=== PATIENT | male | born 1980 | race Two or more races ===

== ENCOUNTER 2022-12-13 11:10 | Inpatient (IN) | payer MEDICAID ==
[~2022-12-13] VITALS: Ht 185.4 cm; Wt 102.5 kg
[2022-12-13] VITALS (33 sets, daily range): BP systolic 118–174; BP diastolic 82–127; TEMP 97.8–98; O2SAT 96–100
[2022-12-13] MEDS ORDERED: MORPHINE SULFATE INJ 4 MG/ML DISP.SYRIN ONE (11:54)
[2022-12-13] MEDS ORDERED: ONDANSETRON HCL/PF 4 MG/2 ML VIAL ONE (11:54)
[2022-12-13] MEDS ORDERED: KETOROLAC TROMETHAMINE INJ 30 MG/ML VIAL ONE (11:55)
[2022-12-13] MEDS ORDERED: MORPHINE SULFATE INJ 2 MG/ML DISP.SYRIN IV ONE (12:00)
[2022-12-13] MEDS ORDERED: KETOROLAC TROMETHAMINE INJ 30 MG/ML VIAL IV ONE (12:00)
[2022-12-13] MEDS ORDERED: IV NS 0.9% 500 ML BAG IV ONE (12:00)
[2022-12-13] MEDS ORDERED: ONDANSETRON HCL/PF 4 MG/2 ML VIAL IVP ONE (12:00)
[2022-12-13 12:11] LABS: BASOPHILS # (AUTO) 0.1 K/uL (0.0-0.2); BASOPHILS % (AUTO) 0.6 % (0.0-2.0); EOSINOPHILS # (AUTO) 0.2 K/uL (0.0-0.7); EOSINOPHILS % (AUTO) 2.3 % (0.0-6.0); HEMATOCRIT 41 % (39-51); HEMOGLOBIN 13.6 g/dL (13.5-17.5); LYMPHOCYTES # (AUTO) 1.5 K/uL (0.8-4.8); LYMPHOCYTES % (AUTO) 18.4 % (20.0-44.0); MEAN CORPUSCULAR HEMOGLOBIN 29 PG (26.0-33.0); MEAN CORPUSCULAR HGB CONC 34 g/dl (31.0-36.0); MEAN CORPUSCULAR VOLUME 86 fL (80-96); MONOCYTES # (AUTO) 0.9 K/uL (0.1-1.30); MONOCYTES % (AUTO) 11.1 % (2.0-12.0); NEUTROPHILS # (AUTO) 5.4 K/uL (1.8-8.9); NEUTROPHILS % (AUTO) 67.6 % (43.0-81.0); PLATELET COUNT (AUTO) 374 K/uL (150-450); RED BLOOD CELL COUNT(AUTO) 4.75 MIL/uL (4.5-6.0); RED CELL DISTRIBUTION WIDTH 14.7 % (11.5-15.0)
[2022-12-13 12:28] LABS: BILIRUBIN,DIRECT 0.2 mg/dL (0.0-0.2); BILIRUBIN,TOTAL 0.4 mg/dL (0.2-1.0); CALCIUM, SERUM 8.8 mg/dL (8.5-10.1); CREATININE 1.8 mg/dL (0.6-1.3); POTASSIUM 3.5 mmol/L (3.5-5.1); TOTAL PROTEIN, SERUM 7.1 g/dL (6.4-8.2)
[2022-12-13] MEDS ORDERED: CT SWABBABLE VALVE TRANS SET 1 EA INFUS.SET MC ONE (14:01)
[2022-12-13] MEDS ORDERED: IOHEXOL-300 100 ML VIAL IV ONE (14:01)
[2022-12-13] MEDS ORDERED: LABETALOL HCL IV 100MG VIAL ONE (14:53)
[2022-12-13] MEDS ORDERED: LABETALOL 20 MG/4 ML VIAL IV ONE (15:00)
[2022-12-13] MEDS ORDERED: IV NS 0.9% 250 ML IV ONE (15:55)
[2022-12-13] MEDS ORDERED: IOHEXOL-350 100 ML VIAL IV ONE (15:55)
[2022-12-13] MEDS ORDERED: ESMOLOL IVPB PREMIX 2,500 MG in PREMIX 1 EA IV PRN (17:00)
[2022-12-13] MEDS: PANTOPRAZOLE 40 MG TABLET.DR PO SCH (17:25)
[2022-12-13] MEDS: ESMOLOL IVPB PREMIX 2,500 MG in PREMIX 1 EA IV PRN ×2 (17:26→20:56)
[2022-12-13] MEDS ORDERED: Z GUARD REMEDY 4 OZ OINT TP PRN (17:30)
[2022-12-13] MEDS ORDERED: MAGNESIUM HYDROXIDE 30 ML UDC PO PRN (17:30)
[2022-12-13] MEDS ORDERED: ACETAMINOPHEN 325 MG TABLET PO PRN (17:30)
[2022-12-13] MEDS ORDERED: ZOLPIDEM TARTRATE 5 MG TABLET PO PRN (17:30)
[2022-12-13] MEDS ORDERED: ONDANSETRON HCL/PF 4 MG/2 ML VIAL IVP PRN (17:30)
[2022-12-13] MEDS ORDERED: MAG HYDROX/AL HYDROX/SIMETH 30 ML UDC PO PRN (17:30)
[2022-12-13] MEDS: CLOPIDOGREL BISULFATE 75 MG TABLET PO SCH (17:51)
[2022-12-13] MEDS: ASPIRIN 81 MG TAB.CHEW PO SCH (17:51)
[2022-12-13] MEDS: hydrALAZINE HCL IV 20 MG VIAL IV PRN (17:58)
[2022-12-13] MEDS ORDERED: CLOPIDOGREL BISULFATE 75 MG TABLET PO SCH (19:00)
[2022-12-13] MEDS ORDERED: ASPIRIN 81 MG TAB.CHEW PO SCH (19:00)
[2022-12-14] VITALS (57 sets, daily range): BP systolic 111–157; BP diastolic 65–118; TEMP 98–99.1; O2SAT 93–100
[2022-12-14] MEDS: hydrALAZINE HCL IV 20 MG VIAL IV PRN ×2 (01:53→17:27)
[2022-12-14] MEDS: ESMOLOL IVPB PREMIX 2,500 MG in PREMIX 1 EA IV PRN ×9 (02:18→22:51)
[2022-12-14 03:44] LABS: EOSINOPHILS # (AUTO) 0.5 K/uL (0.0-0.7); EOSINOPHILS % (AUTO) 8.3 % (0.0-6.0); HEMATOCRIT 39 % (39-51); HEMOGLOBIN 13.1 g/dL (13.5-17.5); LYMPHOCYTES # (AUTO) 1.2 K/uL (0.8-4.8); LYMPHOCYTES % (AUTO) 20.5 % (20.0-44.0); MEAN CORPUSCULAR HEMOGLOBIN 29 PG (26.0-33.0); MEAN CORPUSCULAR HGB CONC 33 g/dl (31.0-36.0); MEAN CORPUSCULAR VOLUME 86 fL (80-96); MONOCYTES # (AUTO) 0.1 K/uL (0.1-1.30); MONOCYTES % (AUTO) 1.7 % (2.0-12.0); NEUTROPHILS % (AUTO) 69.5 % (43.0-81.0); PLATELET COUNT (AUTO) 375 K/uL (150-450); RED BLOOD CELL COUNT(AUTO) 4.53 MIL/uL (4.5-6.0); RED CELL DISTRIBUTION WIDTH 15.3 % (11.5-15.0); WHITE BLOOD COUNT (AUTO) 5.7 K/uL (4.3-11.0)
[2022-12-14 04:03] LABS: CALCIUM, SERUM 8.4 mg/dL (8.5-10.1); CREATININE 1.7 mg/dL (0.6-1.3); MAGNESIUM 1.9 mg/dL (1.8-2.4); PHOSPHORUS 4.2 mg/dL (2.5-4.9); POTASSIUM 3.6 mmol/L (3.5-5.1)
[2022-12-14 04:12] LABS: THYROID STIMULATING HORMONE 1.661 uIU/mL (0.358-3.74)
[2022-12-14] MEDS: CLOPIDOGREL BISULFATE 75 MG TABLET PO SCH (08:27)
[2022-12-14] MEDS: ASPIRIN 81 MG TAB.CHEW PO SCH (08:28)
[2022-12-14] MEDS: PANTOPRAZOLE 40 MG TABLET.DR PO SCH (08:28)
[2022-12-14 08:37] LABS: BASOPHILS % (AUTO) 0.6 % (0.0-2.0); EOSINOPHILS # (AUTO) 0.1 K/uL (0.0-0.7); HEMATOCRIT 40 % (39-51); LYMPHOCYTES # (AUTO) 1.2 K/uL (0.8-4.8); LYMPHOCYTES % (AUTO) 20.3 % (20.0-44.0); MEAN CORPUSCULAR HEMOGLOBIN 28 PG (26.0-33.0); MEAN CORPUSCULAR HGB CONC 33 g/dl (31.0-36.0); MEAN CORPUSCULAR VOLUME 87 fL (80-96); MONOCYTES # (AUTO) 0.5 K/uL (0.1-1.30); MONOCYTES % (AUTO) 8.7 % (2.0-12.0); NEUTROPHILS # (AUTO) 4.2 K/uL (1.8-8.9); NEUTROPHILS % (AUTO) 68.4 % (43.0-81.0); PLATELET COUNT (AUTO) 374 K/uL (150-450); RED BLOOD CELL COUNT(AUTO) 4.62 MIL/uL (4.5-6.0); RED CELL DISTRIBUTION WIDTH 15.1 % (11.5-15.0); WHITE BLOOD COUNT (AUTO) 6.1 K/uL (4.3-11.0)
[2022-12-14] MEDS: ATORVASTATIN 40 MG TABLET PO SCH (08:46)
[2022-12-14 08:49] LABS: ALBUMIN 2.6 g/dL (3.4-5.0); BILIRUBIN,TOTAL 0.4 mg/dL (0.2-1.0); CALCIUM, SERUM 8.7 mg/dL (8.5-10.1); CREATININE 1.7 mg/dL (0.6-1.3); MAGNESIUM 1.6 mg/dL (1.8-2.4); PHOSPHORUS 3.5 mg/dL (2.5-4.9); POTASSIUM 3.7 mmol/L (3.5-5.1); TOTAL PROTEIN, SERUM 6.4 g/dL (6.4-8.2)
[2022-12-14] MEDS ORDERED: CARVEDILOL 12.5 MG TABLET PO SCH (09:00)
[2022-12-14] MEDS ORDERED: CARVEDILOL 12.5 MG TABLET PO ONE (13:00)
[2022-12-14 16:47] LABS: FERRITIN 127 ng/mL (8-388)
[2022-12-14] MEDS: BLOOD SUGAR DIAGNOSTIC 1 EACH STRIP IN SCH ×2 (16:59→22:01)
[2022-12-14] MEDS ORDERED: HEPARIN INFUSION/D5W 500 ML IV PRN (17:00)
[2022-12-14 17:17] LABS: CREATININE, URINE 173.2 MG/DL (30.0-125.0); URINE TOTAL PROTEIN 77.9 mg/dL (0-11.9)
[2022-12-14 17:20] LABS: IRON, SERUM 128 ug/dl (50-175); TOTAL IRON BINDING CAPACITY 279 ug/dl (250-450)
[2022-12-14 17:27] LABS: APPEARANCE,URINE CLEAR (CLEAR); BILIRUBIN,URINE NEGATIVE (NEGATIVE); BLOOD, URINE NEGATIVE Ery/uL (NEGATIVE); COLOR,URINE YELLOW (YELLOW); KETONES,URINE NEGATIVE (NEGATIVE); LEUKOCYTE ESTERASE ,URINE NEGATIVE (NEGATIVE); NITRITE, URINE NEGATIVE (NEGATIVE); PROTEIN,URINE 1+ mg/dl (NEGATIVE); UGLUCOSE NEGATIVE (NEGATIVE)
[2022-12-14 17:32] LABS: INR 1.09 (0.91-1.10); PARTIAL THROMBOPLASTIN TIME 30.6 SEC (24.3-34.3); PROTHROMBIN TIME 11.4 SECS (9.2-11.1)
[2022-12-14 18:55] LABS: ADD URINE CULTURE NO; BACTERIA,URINE None seen /HPF (None Seen); MUCUS,URINE Moderate /LPF (None Seen); RBC,URINE 0-2 /HPF (0-2); WBC,URINE 0-2 /HPF (0-3)
[2022-12-14 19:02] LABS: EOSINOPHIL,URINE None Seen
[2022-12-14] MEDS: CARVEDILOL 12.5 MG TABLET PO SCH (21:02)
[2022-12-15] VITALS (95 sets, daily range): BP systolic 107–173; BP diastolic 72–115; TEMP 98–98.5; O2SAT 91–100
[2022-12-15] MEDS: ESMOLOL IVPB PREMIX 2,500 MG in PREMIX 1 EA IV PRN ×8 (02:09→20:38)
[2022-12-15 05:33] LABS: BASOPHILS % (AUTO) 0.5 % (0.0-2.0); EOSINOPHILS # (AUTO) 0.1 K/uL (0.0-0.7); EOSINOPHILS % (AUTO) 1.9 % (0.0-6.0); HEMATOCRIT 38 % (39-51); HEMOGLOBIN 12.8 g/dL (13.5-17.5); LYMPHOCYTES # (AUTO) 1.2 K/uL (0.8-4.8); LYMPHOCYTES % (AUTO) 18.4 % (20.0-44.0); MEAN CORPUSCULAR HEMOGLOBIN 29 PG (26.0-33.0); MEAN CORPUSCULAR HGB CONC 34 g/dl (31.0-36.0); MEAN CORPUSCULAR VOLUME 86 fL (80-96); MONOCYTES # (AUTO) 0.6 K/uL (0.1-1.30); MONOCYTES % (AUTO) 9.7 % (2.0-12.0); NEUTROPHILS # (AUTO) 4.6 K/uL (1.8-8.9); NEUTROPHILS % (AUTO) 69.5 % (43.0-81.0); PLATELET COUNT (AUTO) 330 K/uL (150-450); RED BLOOD CELL COUNT(AUTO) 4.41 MIL/uL (4.5-6.0); RED CELL DISTRIBUTION WIDTH 14.9 % (11.5-15.0); WHITE BLOOD COUNT (AUTO) 6.7 K/uL (4.3-11.0)
[2022-12-15 05:44] LABS: CALCIUM, SERUM 8.6 mg/dL (8.5-10.1); CREATININE 1.5 mg/dL (0.6-1.3); MAGNESIUM 1.9 mg/dL (1.8-2.4); PHOSPHORUS 3.1 mg/dL (2.5-4.9); POTASSIUM 3.7 mmol/L (3.5-5.1)
[2022-12-15] MEDS: BLOOD SUGAR DIAGNOSTIC 1 EACH STRIP IN SCH ×2 (07:13→14:56)
[2022-12-15 08:07] LABS: IMMUNOGLOBULIN A, SERUM 220 mg/dL (90-386); IMMUNOGLOBULIN G, SERUM 985 mg/dL (603-1613)
[2022-12-15] MEDS: CLOPIDOGREL BISULFATE 75 MG TABLET PO SCH (08:45)
[2022-12-15] MEDS: ASPIRIN 81 MG TAB.CHEW PO SCH (08:45)
[2022-12-15] MEDS: CARVEDILOL 12.5 MG TABLET PO SCH ×2 (08:46→20:38)
[2022-12-15] MEDS: hydrALAZINE HCL 50 MG TABLET PO SCH ×3 (08:48→17:11)
[2022-12-15] MEDS: NITROGLYCERIN 30 GM TUBE TP SCH ×2 (08:48→21:08)
[2022-12-15] MEDS: ATORVASTATIN 40 MG TABLET PO SCH (09:11)
[2022-12-15] MEDS: PANTOPRAZOLE 40 MG TABLET.DR PO SCH (09:11)
[2022-12-15 11:07] LABS: *SPE A/G RATIO 0.8 (0.7-1.7); *SPE ALBUMIN 2.6 g/dL (2.9-4.4); *SPE ALPHA-1-GLOBULIN 0.3 g/dL (0.0-0.4); *SPE ALPHA-2-GLOBULIN 0.7 g/dL (0.4-1.0); *SPE BETA GLOBULIN 1.1 g/dL (0.7-1.3); *SPE GLOBULIN, TOTAL 3.1 g/dL (2.2-3.9); *SPE M-SPIKE Not Observed g/dL (Not Observed); *SPE PROTEIN TOTAL 5.7 g/dL (6.0-8.5)
[2022-12-15 14:07] LABS: FREE LAMBDA LT CHAIN SERUM 29.4 mg/L (5.7-26.3); KAPPA/LAMBDA RATIO SERUM 1.39 (0.26-1.65)
[2022-12-16] VITALS (96 sets, daily range): BP systolic 106–166; BP diastolic 60–111; TEMP 97.3–98.4; O2SAT 90–100
[2022-12-16] MEDS: ESMOLOL IVPB PREMIX 2,500 MG in PREMIX 1 EA IV PRN ×4 (00:23→07:58)
[2022-12-16] MEDS: hydrALAZINE HCL IV 20 MG VIAL IV PRN ×2 (00:26→20:33)
[2022-12-16 01:06] LABS: FOLIC ACID 12.1 ng/mL (>3.0)
[2022-12-16 04:06] LABS: IMMUNOGLOBULIN M, SERUM 67 mg/dL (20-172)
[2022-12-16 04:50] LABS: BASOPHILS % (AUTO) 0.4 % (0.0-2.0); EOSINOPHILS # (AUTO) 0.1 K/uL (0.0-0.7); EOSINOPHILS % (AUTO) 1.4 % (0.0-6.0); HEMATOCRIT 38 % (39-51); HEMOGLOBIN 12.9 g/dL (13.5-17.5); LYMPHOCYTES # (AUTO) 1.2 K/uL (0.8-4.8); LYMPHOCYTES % (AUTO) 16.1 % (20.0-44.0); MEAN CORPUSCULAR HEMOGLOBIN 29 PG (26.0-33.0); MEAN CORPUSCULAR HGB CONC 34 g/dl (31.0-36.0); MEAN CORPUSCULAR VOLUME 85 fL (80-96); MONOCYTES # (AUTO) 0.8 K/uL (0.1-1.30); NEUTROPHILS # (AUTO) 5.6 K/uL (1.8-8.9); NEUTROPHILS % (AUTO) 72.1 % (43.0-81.0); PLATELET COUNT (AUTO) 368 K/uL (150-450); RED BLOOD CELL COUNT(AUTO) 4.49 MIL/uL (4.5-6.0); RED CELL DISTRIBUTION WIDTH 14.8 % (11.5-15.0); WHITE BLOOD COUNT (AUTO) 7.7 K/uL (4.3-11.0)
[2022-12-16 05:31] LABS: ALBUMIN 2.8 g/dL (3.4-5.0); BILIRUBIN,TOTAL 0.6 mg/dL (0.2-1.0); CALCIUM, SERUM 8.8 mg/dL (8.5-10.1); CREATININE 1.5 mg/dL (0.6-1.3); MAGNESIUM 1.8 mg/dL (1.8-2.4); PHOSPHORUS 2.9 mg/dL (2.5-4.9); TOTAL PROTEIN, SERUM 6.3 g/dL (6.4-8.2)
[2022-12-16 06:06] LABS: PTH, INTACT 59 pg/mL (15-65)
[2022-12-16] MEDS: ATORVASTATIN 40 MG TABLET PO SCH (08:16)
[2022-12-16] MEDS: CARVEDILOL 12.5 MG TABLET PO SCH ×2 (08:16→20:34)
[2022-12-16] MEDS: NIFEdipine XL (30MG) 30 MG TAB PO SCH (08:17)
[2022-12-16] MEDS: ASPIRIN 81 MG TAB.CHEW PO SCH (08:29)
[2022-12-16] MEDS: hydrALAZINE HCL 50 MG TABLET PO SCH ×3 (08:29→16:16)
[2022-12-16] MEDS: PANTOPRAZOLE 40 MG TABLET.DR PO SCH (08:29)
[2022-12-16] MEDS: ISOSORBIDE DINITRATE (20MG) 20 MG TABLET PO SCH ×2 (08:30→16:16)
[2022-12-16] MEDS: CLOPIDOGREL BISULFATE 75 MG TABLET PO SCH (08:30)
[2022-12-16] MEDS: ENOXAPARIN SODIUM 40 MG/0.4 ML DISP.SYRIN SQ SCH (08:31)
[2022-12-17] VITALS (54 sets, daily range): BP systolic 105–164; BP diastolic 57–95; TEMP 98.2–98.9; O2SAT 95–100
[2022-12-17] MEDS: hydrALAZINE HCL IV 20 MG VIAL IV PRN (03:48)
[2022-12-17 05:11] LABS: BASOPHILS # (AUTO) 0.1 K/uL (0.0-0.2); BASOPHILS % (AUTO) 1.1 % (0.0-2.0); EOSINOPHILS # (AUTO) 0.2 K/uL (0.0-0.7); EOSINOPHILS % (AUTO) 2.3 % (0.0-6.0); HEMATOCRIT 39 % (39-51); HEMOGLOBIN 12.7 g/dL (13.5-17.5); LYMPHOCYTES # (AUTO) 1.5 K/uL (0.8-4.8); LYMPHOCYTES % (AUTO) 17.9 % (20.0-44.0); MEAN CORPUSCULAR HEMOGLOBIN 28 PG (26.0-33.0); MEAN CORPUSCULAR HGB CONC 33 g/dl (31.0-36.0); MEAN CORPUSCULAR VOLUME 86 fL (80-96); MONOCYTES % (AUTO) 11.9 % (2.0-12.0); NEUTROPHILS # (AUTO) 5.7 K/uL (1.8-8.9); NEUTROPHILS % (AUTO) 66.8 % (43.0-81.0); PLATELET COUNT (AUTO) 385 K/uL (150-450); RED BLOOD CELL COUNT(AUTO) 4.54 MIL/uL (4.5-6.0); RED CELL DISTRIBUTION WIDTH 14.7 % (11.5-15.0); WHITE BLOOD COUNT (AUTO) 8.5 K/uL (4.3-11.0)
[2022-12-17 05:27] LABS: ALBUMIN 2.6 g/dL (3.4-5.0); BILIRUBIN,TOTAL 0.4 mg/dL (0.2-1.0); MAGNESIUM 1.7 mg/dL (1.8-2.4); PHOSPHORUS 3.6 mg/dL (2.5-4.9)
[2022-12-17 05:35] LABS: CALCIUM, SERUM 8.3 mg/dL (8.5-10.1); CREATININE 1.6 mg/dL (0.6-1.3); POTASSIUM 3.5 mmol/L (3.5-5.1)
[2022-12-17 06:07] LABS: *SPE A/G RATIO 0.7 (0.7-1.7); *SPE ALBUMIN 2.3 g/dL (2.9-4.4); *SPE ALPHA-1-GLOBULIN 0.3 g/dL (0.0-0.4); *SPE ALPHA-2-GLOBULIN 0.4 g/dL (0.4-1.0); *SPE BETA GLOBULIN 1.2 g/dL (0.7-1.3); *SPE GLOBULIN, TOTAL 3.3 g/dL (2.2-3.9); *SPE M-SPIKE Not Observed g/dL (Not Observed); *SPE PROTEIN TOTAL 5.6 g/dL (6.0-8.5); *SPEGAMMA GLOBULIN 1.5 g/dL (0.4-1.8)
[2022-12-17] MEDS: ATORVASTATIN 40 MG TABLET PO SCH (08:06)
[2022-12-17] MEDS: NIFEdipine XL (30MG) 30 MG TAB PO SCH (08:06)
[2022-12-17] MEDS: PANTOPRAZOLE 40 MG TABLET.DR PO SCH (08:06)
[2022-12-17] MEDS: CARVEDILOL 12.5 MG TABLET PO SCH (08:06)
[2022-12-17] MEDS: ASPIRIN 81 MG TAB.CHEW PO SCH (08:07)
[2022-12-17] MEDS: hydrALAZINE HCL 50 MG TABLET PO SCH ×4 (08:07→16:23)
[2022-12-17] MEDS: CLOPIDOGREL BISULFATE 75 MG TABLET PO SCH (08:07)
[2022-12-17] MEDS: ISOSORBIDE DINITRATE (20MG) 20 MG TABLET PO SCH ×3 (08:07→16:23)
[2022-12-17] MEDS: ENOXAPARIN SODIUM 40 MG/0.4 ML DISP.SYRIN SQ SCH (08:08)
[2022-12-17] MEDS ORDERED: LOSARTAN POTASSIUM 50 MG TABLET PO SCH (09:00)
[2022-12-17] MEDS ORDERED: VALSARTAN 80 MG TABLET PO SCH (09:00)
[2022-12-17] MEDS ORDERED: MAGNESIUM OXIDE 400 MG TABLET PO ONE (10:00)
== END 2022-12-17 17:35 | disposition left against medical advice (07) | DRG 197 ==
LOC: ER 11:10 → ICU 16:54
PROVIDERS: ADMIT Student in an Organized Health Care Education/Training Program
PROC: 05H633Z Insertion of Infusion Device into Left Subclavian Vein, Percutaneous Approach (ICD-10-PCS; principal; 2022-12-13)
PROC: B547ZZA Ultrasonography of Left Subclavian Vein, Guidance (ICD-10-PCS; 2022-12-13)
DX: I77.72 Dissection of iliac artery (principal); N17.0 Acute kidney failure with tubular necrosis; I77.77 Dissection of artery of lower extremity; E44.0 Moderate protein-calorie malnutrition; E88.09 Other disorders of plasma-protein metabolism, not elsewhere classified; E87.1 Hypo-osmolality and hyponatremia; I42.9 Cardiomyopathy, unspecified; I16.0 Hypertensive urgency; E11.22 Type 2 diabetes mellitus with diabetic chronic kidney disease; E83.42 Hypomagnesemia; N18.9 Chronic kidney disease, unspecified; F17.210 Nicotine dependence, cigarettes, uncomplicated; R59.0 Localized enlarged lymph nodes; Z68.29 Body mass index [BMI] 29.0-29.9, adult; I12.9 Hypertensive chronic kidney disease with stage 1 through stage 4 chronic kidney disease, or unspecified chronic kidney disease; D64.9 Anemia, unspecified
CPT/HCPCS: 36410; 36415; 76770-TC; 80048-TC; 80053-TC; 80061-TC; 80076-TC; 81001; 82378; 82550-TC; 82570-TC; 82607-TC; 82728-TC; 82784; 82962-TC; 83540-TC; 83615-TC; 83690-TC; 83735-TC; 83970; 84100-TC; 84155; 84165; 84300-TC; 84443-TC; 84484-TC; 85025-TC; 85610-TC; 85730-TC; 86334; 93307-TC; A4216; A4223; G0378; J0360; J1644; J1650; J1885; J2270; J2405; J3490; J7030; J7050; Q9967